=== PATIENT | female | born 1995 | race Caucasian/White ===

== ENCOUNTER 2016-10-20 19:05 | Emergency (ER) | payer OTHER ==
[~2016-10-20] VITALS: Ht 160 cm; Wt 40.4 kg
[2016-10-20 19:58] VITALS: BP 125/73
--- NOTE | 2016-10-20 22:21 | NUR ---
PT TAKE TO BED 6
--- NOTE | 2016-10-20 22:45 | NUR ---
21Y F BIB FAMILY C/O OF ABD PAIN X 2 DAYS. DENIES N/V/D. ALSO C/O OF LUMBAR PAIN X3 WKS. V/S TAKEN AND WNL. HX OF ECTOPIC AND FALLOPIAN NTUBE SX.
[2016-10-20 23:24] LABS: APPEARANCE,URINE SL CLOUDY (CLEAR); BILIRUBIN,URINE NEGATIVE (NEGATIVE); BLOOD, URINE NEGATIVE (NEGATIVE); COLOR,URINE YELLOW (YELLOW); LEUKOCYTE ESTERASE ,URINE NEGATIVE (NEGATIVE); NITRITE, URINE NEGATIVE (NEGATIVE); PH,URINE 6.5 (5.0-9.0); PROTEIN,URINE NEGATIVE (NEGATIVE); UGLUCOSE NEGATIVE (NEGATIVE); UROBILINOGEN,URINE 0.2 EU/dL (0.2 - 1)
[2016-10-20 23:33] LABS: BASOPHILS # (AUTO) 0.1 K/uL (0.00-0.22); BASOPHILS % (AUTO) 1.9 % (0.0-2.0); EOSINOPHILS # (AUTO) 0.1 K/uL (0-0.4); EOSINOPHILS % (AUTO) 1.5 % (0.0-4.0); HEMATOCRIT 37.9 % (36-48); LYMPHOCYTES # (AUTO) 1.3 K/uL (2.5-16.5); LYMPHOCYTES % (AUTO) 17.2 % (20.5-51.1); MEAN CORPUSCULAR HEMOGLOBIN 31 pg (27-31); MEAN CORPUSCULAR HGB CONC 34 g/dL (33-37); MEAN CORPUSCULAR VOLUME 90 fL (80-94); MONOCYTES # (AUTO) 0.5 K/uL (0.8-1.0); MONOCYTES % (AUTO) 6.3 % (1.7-9.3); NEUTROPHILS # (AUTO) 5.4 K/uL (1.8-7.7); NEUTROPHILS % (AUTO) 73.1 % (42.2-75.2); PLATELET COUNT (AUTO) 237 K/uL (140-450); RED CELL DISTRIBUTION WIDTH 14.1 % (11.6-13.7); WHITE BLOOD COUNT (AUTO) 7.4 K/uL (4.8-10.8)
[2016-10-20 23:37] LABS: ALBUMIN 3.7 g/dL (3.4-5.0); ANION GAP 9.8 (8-16); CALCIUM 8.3 mg/dL (8.5-10.1); CARBON DIOXIDE 30.7 mmol/L (21-32); CREATININE 0.7 mg/dL (0.6-1.3); POTASSIUM 3.5 mmol/L (3.5-5.1); TOTAL BILIRUBIN 0.6 mg/dL (0.0-1.0); TOTAL PROTEIN, SERUM 7.3 g/dL (6.4-8.2)
[2016-10-20 23:39] LABS: BACTERIA,URINE FEW /HPF (None Seen); MUCUS,URINE 4+ /LPF (None Seen); RBC,URINE 0-5 (RARE) /HPF (0-5); SQUAMOUS EPITHELIAL CELL,UR 0-3 (FEW) /LPF (0-3 (FEW)); WBC,URINE 0-5 (RARE) /HPF (0-5)
[2016-10-20 23:51] LABS: INR 1.1 (0.8-1.2); PROTHROMBIN TIME 10.6 secs (10.8-13.4)
--- NOTE | 2016-10-21 01:05 | NUR ---
Patient discharged with v/s stable. Written and verbal after care instructions given and explained BY DR DUNN. Patient verbalized understanding. Ambulatory with steady gait. All questions addressed prior to discharge. Advised to follow up with PMD.
[2016-10-21 01:07] VITALS: BP 119/71
== END 2016-10-21 01:05 | disposition home or self-care (01) ==
LOC: MED 19:05
DX: R10.30 Lower abdominal pain, unspecified (principal)
CPT/HCPCS: 36415; 76856; 80053; 81001; 81025; 85025; 85610; 85730; 86900; 86901; 99285; Q0092

== ENCOUNTER 2017-10-22 09:51 | Emergency (ER) | payer OTHER ==
[~2017-10-22] VITALS: Ht 165.1 cm; Wt 47.6 kg
[2017-10-22 10:14] VITALS: BP 126/68
--- NOTE | 2017-10-22 10:20 | NUR ---
PT AMBULATED TO BED 4
--- NOTE | 2017-10-22 10:30 | NUR ---
PATIENT PRESENTS TO ED WITH c/o persistant vomiting x 3 wks---no abdominal pain , denies watery/loose stools, UNKNOWN IF PREGNENT. DENIES PAIN, VSS. ER MD MADE AWARE OF PT STATUS.
--- NOTE | 2017-10-22 10:40 | NUR ---
Patient being evaluated by physician at bedside.
[2017-10-22] MEDS ORDERED: MULTIVITAMIN-12 10 ML, THIAMINE 100 MG, MAGNESIUM SULFATE 50% 2,000 MG, FOLIC ACID 5 MG... IV ONE ×5 (10:55)
[2017-10-22] MEDS ORDERED: FAMOTIDINE 20 MG/2 ML VIAL IVP ONE (10:55)
[2017-10-22] MEDS ORDERED: ONDANSETRON 4 MG/2 ML VIAL IVP ONE (10:55)
[2017-10-22 11:22] LABS: BILIRUBIN,URINE 1+ (NEGATIVE); BLOOD, URINE NEGATIVE (NEGATIVE); COLOR,URINE YELLOW (YELLOW); LEUKOCYTE ESTERASE ,URINE NEGATIVE (NEGATIVE); NITRITE, URINE NEGATIVE (NEGATIVE); UGLUCOSE NEGATIVE (NEGATIVE)
[2017-10-22 11:29] LABS: ANION GAP 11.6 (8-16); CARBON DIOXIDE 27.1 mmol/L (21-32); CREATININE 0.6 mg/dL (0.6-1.3); POTASSIUM 3.7 mmol/L (3.5-5.1)
[2017-10-22 11:30] LABS: BASOPHILS # (AUTO) 0.2 K/uL (0.00-0.22); EOSINOPHILS # (AUTO) 0.1 K/uL (0-0.4); EOSINOPHILS % (AUTO) 0.9 % (0.0-4.0); HEMATOCRIT 40.7 % (36-48); HEMOGLOBIN 13.6 g/dL (12.0-16.0); LYMPHOCYTES # (AUTO) 0.7 K/uL (2.5-16.5); LYMPHOCYTES % (AUTO) 11.6 % (20.5-51.1); MEAN CORPUSCULAR HEMOGLOBIN 31 pg (27-31); MEAN CORPUSCULAR HGB CONC 33 g/dL (33-37); MEAN CORPUSCULAR VOLUME 92 fL (80-94); MONOCYTES # (AUTO) 0.4 K/uL (0.8-1.0); MONOCYTES % (AUTO) 6.8 % (1.7-9.3); NEUTROPHILS # (AUTO) 4.5 K/uL (1.8-7.7); NEUTROPHILS % (AUTO) 77.7 % (42.2-75.2); PLATELET COUNT (AUTO) 241 K/uL (140-450); RED BLOOD CELL COUNT(AUTO) 4.45 MIL/uL (4.20-5.40); RED CELL DISTRIBUTION WIDTH 13.1 % (11.6-13.7); WHITE BLOOD COUNT (AUTO) 5.9 K/uL (4.8-10.8)
[2017-10-22 11:33] LABS: APPEARANCE,URINE SLIGHTLY HAZY (CLEAR)
[2017-10-22 11:34] LABS: RBC,URINE 0-5 (RARE) /HPF (0-5); WBC,URINE 0-5 (RARE) /HPF (0-5)
[2017-10-22 11:38] LABS: ALBUMIN 4.3 g/dL (3.4-5.0); TOTAL BILIRUBIN 0.9 mg/dL (0.0-1.0)
--- NOTE | 2017-10-22 11:40 | NUR ---
PT IS TAKEN VIA WHEELCHAIR FOR US.
--- NOTE | 2017-10-22 12:40 | NUR ---
PT IS RESTING IN BED, NO S/S OF DISTRESS, VSS. DENIES PAIN.
[2017-10-22 14:36] VITALS: BP 126/68
--- NOTE | 2017-10-22 14:36 | NUR ---
Patient discharged with v/s stable. Written and verbal after care instructions given and explained. Patient alert, oriented and verbalized understanding of instructions. Ambulatory with steady gait. All questions addressed prior to discharge. ID band removed. Patient advised to follow up with PMD. Rx of ZOFRAN, CITRACAL, CYPROHEPTADINE given. Patient educated on indication of medication including possible reaction and side effects. Opportunity to ask questions provided and answered.
== END 2017-10-22 14:36 | disposition home or self-care (01) ==
LOC: MED 09:51
DX: O21.0 Mild hyperemesis gravidarum (principal); Z3A.01 Less than 8 weeks gestation of pregnancy
CPT/HCPCS: 36415; 76817; 80053; 81001; 84702; 85025; 86900; 86901; 96365; 96366; 96375; 99285; A9153; J2405; J3411; J3475; J3490; J7030

== ENCOUNTER 2019-10-16 04:58 | Emergency (ER) | payer OTHER ==
[~2019-10-16] VITALS: Ht 160 cm; Wt 58.5 kg
[2019-10-16 05:02] VITALS: BP 120/67
--- NOTE | 2019-10-16 05:13 | NUR ---
PT AMBULATED TO BED 6 WITH STEADY GAIT.
--- NOTE | 2019-10-16 05:15 | NUR ---
PT 24 Y/O FEMALE BIB SELF FOR C/O 8/10 LOWER ABD PAIN X 1 WEEK. PT HAS C/O NAUSEA BUT HAS HAD NO EPISODES OF VOMITING. PT STATES BM ARE NORMAL. BS PRESENT X 4. ABD IS SOFT, ROUND, AND TENDER TO TOUCH. PT STATES PAIN IS IB LLQ, AND RLQ AND IS CONTINOUS. RESPIRATIONS ARE EVEN AND UNLABORED. SKIN IS WARM AND DRY TO TOUCH. VSS. BED IS LOCKED AND IN LOWEST POSITION. PARTNER AT BEDSIDE. MEDHX: ECTOPIC , FILLOPIAN TUBE CYST (BOTH X 5 YEARS AGO.) ALLERGIES: NKA
--- NOTE | 2019-10-16 06:03 | NUR ---
PT TAKEN TO CT VIA W/C.
[2019-10-16 06:30] LABS: BASOPHILS # (AUTO) 0.1 K/uL (0.00-0.22); BASOPHILS % (AUTO) 0.6 % (0.0-2.0); EOSINOPHILS # (AUTO) 0.1 K/uL (0-0.4); EOSINOPHILS % (AUTO) 1.2 % (0.0-4.0); HEMATOCRIT 40.4 % (36-48); HEMOGLOBIN 13.7 g/dL (12.0-16.0); LYMPHOCYTES % (AUTO) 10.4 % (20.5-51.1); MEAN CORPUSCULAR HEMOGLOBIN 31 pg (27-31); MEAN CORPUSCULAR HGB CONC 34 g/dL (33-37); MEAN CORPUSCULAR VOLUME 91.1 fL (80-94); MONOCYTES # (AUTO) 0.5 K/uL (0.8-1.0); MONOCYTES % (AUTO) 5.3 % (1.7-9.3); NEUTROPHILS # (AUTO) 7.7 K/uL (1.8-7.7); NEUTROPHILS % (AUTO) 82.5 % (42.2-75.2); PLATELET COUNT (AUTO) 220 K/uL (140-450); RED BLOOD CELL COUNT(AUTO) 4.44 MIL/uL (4.20-5.40); RED CELL DISTRIBUTION WIDTH 13.2 % (11.6-13.7); WHITE BLOOD COUNT (AUTO) 9.3 K/uL (4.8-10.8)
[2019-10-16 06:55] LABS: ANION GAP 12.2 (8-16); CARBON DIOXIDE 27.9 mmol/L (21-32); CREATININE 0.7 mg/dL (0.6-1.3); POTASSIUM 4.1 mmol/L (3.5-5.1); TOTAL BILIRUBIN 0.5 mg/dL (0.0-1.0)
--- NOTE | 2019-10-16 07:00 | NUR ---
REPORT GIVEN TO JAVI BLAIR.
--- NOTE | 2019-10-16 07:12 | NUR ---
PT RESTING IN BED, SIDE RAIL X1
[2019-10-16 07:18] LABS: APPEARANCE,URINE HAZY (CLEAR); BILIRUBIN,URINE NEGATIVE (NEGATIVE); BLOOD, URINE NEGATIVE (NEGATIVE); COLOR,URINE YELLOW (YELLOW); LEUKOCYTE ESTERASE ,URINE NEGATIVE (NEGATIVE); NITRITE, URINE NEGATIVE (NEGATIVE); UGLUCOSE NEGATIVE (NEGATIVE)
[2019-10-16] MEDS ORDERED: KETOROLAC 30 MG/ML VIAL IVP NR (07:20)
[2019-10-16] MEDS ORDERED: ONDANSETRON 4 MG ODT PO ONE (08:55)
[2019-10-16] MEDS ORDERED: HYDROcodone/APAP 5/325 MG 1 TAB TAB PO ONE (08:55)
[2019-10-16 09:07] VITALS: BP 118/62
--- NOTE | 2019-10-16 09:07 | NUR ---
Patient discharged with v/s stable. Written and verbal after care instructions given and explained. Patient alert, oriented and verbalized understanding of instructions. Ambulatory with steady gait. All questions addressed prior to discharge. ID band removed. Patient advised to follow up with PMD. Rx of NORCOZOFRAN given. Patient educated on indication of medication including possible reaction and side effects. Opportunity to ask questions provided and answered.
== END 2019-10-16 09:07 | disposition home or self-care (01) ==
LOC: MED 04:58
DX: R10.31 Right lower quadrant pain (principal); R19.7 Diarrhea, unspecified
CPT/HCPCS: 36415; 74176; 76856; 80053; 81003; 81025; 82150; 83690; 84703; 85025; 93976; 99285; Q0092; Q0162

== ENCOUNTER 2020-04-07 03:55 | Emergency (ER) | payer OTHER ==
[~2020-04-07] VITALS: Ht 160 cm; Wt 56.7 kg
[2020-04-07 03:58] VITALS: BP 157/85
--- NOTE | 2020-04-07 04:09 | NUR ---
ambulated to bed 9 with steady gait
[2020-04-07] MEDS ORDERED: KETOROLAC 15 MG/ML VIAL IVP STA (04:18)
[2020-04-07 04:19] LABS: APPEARANCE,URINE SL CLOUDY (CLEAR); BILIRUBIN,URINE NEGATIVE (NEGATIVE); BLOOD, URINE TRACE-I (NEGATIVE); COLOR,URINE YELLOW (YELLOW); LEUKOCYTE ESTERASE ,URINE NEGATIVE (NEGATIVE); NITRITE, URINE NEGATIVE (NEGATIVE); PH,URINE 5.5 (5.0-9.0); UGLUCOSE NEGATIVE (NEGATIVE)
--- NOTE | 2020-04-07 04:20 | NUR ---
24 year old female coming in for c/o rlq abdominal pain x 3 hours that is non radiating. states dysuria. denies hematuria or discharges. denies any other s/sx. no injury or trauma noted. Awaiting MSE. PMH: FALLOPIAN CYST , ECTOPIC PREG NKA LMP 03/24/20
--- NOTE | 2020-04-07 04:30 | NUR ---
Dr. Earl at bedside evaluating pt.
[2020-04-07 04:35] LABS: RBC,URINE 0-5 /HPF (0-5); WBC,URINE 0-5 /HPF (0-5)
[2020-04-07 04:43] LABS: BASOPHILS % (AUTO) 0.2 % (0.0-2.0); EOSINOPHILS # (AUTO) 0.2 K/uL (0-0.4); EOSINOPHILS % (AUTO) 1.4 % (0.0-4.0); HEMATOCRIT 40.5 % (36-48); HEMOGLOBIN 13.7 g/dL (12.0-16.0); LYMPHOCYTES # (AUTO) 1.4 K/uL (2.5-16.5); LYMPHOCYTES % (AUTO) 10.3 % (20.5-51.1); MEAN CORPUSCULAR HEMOGLOBIN 31 pg (27-31); MEAN CORPUSCULAR HGB CONC 34 g/dL (33-37); MEAN CORPUSCULAR VOLUME 92.8 fL (80-94); MONOCYTES # (AUTO) 0.5 K/uL (0.8-1.0); MONOCYTES % (AUTO) 4.1 % (1.7-9.3); NEUTROPHILS # (AUTO) 11.2 K/uL (1.8-7.7); PLATELET COUNT (AUTO) 235 K/uL (140-450); RED BLOOD CELL COUNT(AUTO) 4.36 MIL/uL (4.20-5.40); WHITE BLOOD COUNT (AUTO) 13.4 K/uL (4.8-10.8)
[2020-04-07 04:55] LABS: ALBUMIN 4.4 g/dL (3.4-5.0); ANION GAP 17.1 (8-16); CARBON DIOXIDE 24.3 mmol/L (21-32); CREATININE 0.8 mg/dL (0.6-1.3); POTASSIUM 3.4 mmol/L (3.5-5.1); TOTAL BILIRUBIN 0.6 mg/dL (0.0-1.0)
[2020-04-07 06:27] VITALS: BP 140/77
--- NOTE | 2020-04-07 06:50 | NUR ---
Patient discharged with v/s stable. Written and verbal after care instructions given and explained. Patient verbalized understanding. Ambulatory with steady gait. All questions addressed prior to discharge. Advised to follow up with PMD.
== END 2020-04-07 06:50 | disposition home or self-care (01) ==
LOC: MED 03:55
DX: N83.201 Unspecified ovarian cyst, right side (principal)
CPT/HCPCS: 36415; 76856; 80053; 81001; 81025; 85025; 93976; 96374; 99284; J1885; Q0092

== ENCOUNTER 2021-01-30 09:18 | Emergency (ER) | payer OTHER ==
[~2021-01-30] VITALS: Ht 160 cm; Wt 61.2 kg
--- NOTE | 2021-01-30 09:21 | NUR ---
Patient transferred to bed 9 via wheelchair by tech. RN evaluating the patient at bedside.
[2021-01-30 09:25] VITALS: BP 124/46
--- NOTE | 2021-01-30 09:26 | NUR ---
25 YEAR OLD FEMALE COMPLAINS OF LOWER BACK PAIN X YESTERDAY. PT DENIES ANY TRAUMA. PT STATES THIS IS SECOND TIME THIS IS HAPPENED, LIMITED MOBILITY DUE TO PAIN. PT STATES SENSATION IN LEGS INTACT. PT AOX4, BREATHING EVEN AND UNLABORED, SKIN WARM AND DRY. BED IN LOWEST POSITION, LOCKED, BED RAIL UPX1. PMH - ECTOPIC , FALLOPIAN CYST, HEART MURMOR ALLERGIES - NKA
[2021-01-30] MEDS ORDERED: KETOROLAC 15 MG/ML VIAL IM SCH (10:05)
[2021-01-30] MEDS ORDERED: DEXAMETHASONE 4 MG TAB PO ONE (10:10)
[2021-01-30] MEDS ORDERED: KETOROLAC 15 MG/ML VIAL IM ONE (10:10)
[2021-01-30] MEDS ORDERED: diazePAM 5 MG TAB PO ONE (10:55)
--- NOTE | 2021-01-30 11:30 | NUR ---
PT ALERT AND AWAKE, BREATHING EVEN AND UNLABORED. NO DISTRESS NOTED. ALL NEEDS MET AT THIS TIME
[2021-01-30] MEDS ORDERED: HYDROcodone/APAP 5/325 MG 1 TAB TAB PO ONE (11:55)
--- NOTE | 2021-01-30 12:55 | NUR ---
Dr. Dubois is evaluating the patient at bedside.
[2021-01-30] MEDS ORDERED: methocarbamoL 500 MG TAB PO STA (12:59)
--- NOTE | 2021-01-30 13:00 | NUR ---
PT ALERT AND AWAKE, BREATHING EVEN AND UNLABORED. NO DISTRESS NOTED. ALL NEEDS MET AT THIS TIME
--- NOTE | 2021-01-30 13:08 | NUR ---
PT ASSISTED INTO A STANDING POSITION AND STATES IMPROVEMENT OF PAIN AT THIS TIME. DR. GEORGE NOTIFIED.
[2021-01-30] MEDS ORDERED: ACET-8386 PO (13:33)
[2021-01-30] MEDS ORDERED: IBUP-2213 PO (13:33)
[2021-01-30] MEDS ORDERED: METH-1681 PO (13:33)
[2021-01-30] MEDS ORDERED: LID5T TP (13:33)
--- NOTE | 2021-01-30 13:45 | NUR ---
Patient discharged with v/s stable. Written and verbal after care instructions about back exercises, back injury prevention given and explained. Patient alert, oriented and verbalized understanding of instructions. Ambulatory with steady gait. All questions addressed prior to discharge. ID band removed. Patient advised to follow up with PMD. Rx of NORCO, ibuprofen, lidoderm patch, robaxin given. Patient educated on indication of medication including possible reaction and side effects. Opportunity to ask questions provided and answered.
[2021-01-30 13:46] VITALS: BP 120/62
== END 2021-01-30 13:45 | disposition home or self-care (01) ==
LOC: MED 09:18
DX: S39.012A Strain of muscle, fascia and tendon of lower back, initial encounter (principal); X58.XXXA Exposure to other specified factors, initial encounter; Y93.89 Activity, other specified; Y92.89 Other specified places as the place of occurrence of the external cause; Y99.8 Other external cause status
CPT/HCPCS: 72100; 96372; 99284; J1885

== ENCOUNTER 2022-08-08 04:00 | Emergency (ER) | payer OTHER ==
[~2022-08-08] VITALS: Ht 160 cm; Wt 54.4 kg
[~2022-08-08 04:00] MED LIST: ACET-8905 PO; IBUP-2213 PO; LID5T TP; METH-1681 PO
[2022-08-08 04:02] VITALS: BP 110/86
--- NOTE | 2022-08-08 04:09 | NUR ---
PT TO 3
--- NOTE | 2022-08-08 04:17 | NUR ---
PT IS AWKE AND ALERT. COMPLANING OF ANXIETY AND PALPITATION. PT IS AMBULATORY AND ROOM AIR.
[2022-08-08] MEDS ORDERED: LORazepam 0.5 MG TAB PO ONE (05:15)
--- NOTE | 2022-08-08 05:27 | NUR ---
X-Ray at bedside.
[2022-08-08] MEDS ORDERED: ATA25 PO (06:19)
[2022-08-08 07:13] VITALS: BP 110/86
--- NOTE | 2022-08-08 07:15 | NUR ---
Patient discharged with v/s stable. Written and verbal after care instructions given and explained. Patient verbalized understanding. Ambulatory with steady gait. All questions addressed prior to discharge. Advised to follow up with PMD. PT LEFT WITH HER BELONGINGS
[2022-08-08 07:30] LABS: BARBITURATE, URINE NEGATIVE ng/ml (NEG <=200); BENZODIAZEPINE, URINE NEGATIVE ng/mL (NEG <=200); COCAINE, URINE POSITIVE ng/mL (NEG <=300)
[2022-08-08 07:31] LABS: CANNABINOID, URINE POSITIVE ng/mL (NEG <=50); OPIATE, URINE NEGATIVE ng/mL (NEG <=2000); PHENCYCLIDINE SCREEN,URINE NEGATIVE ng/mL (NEG <=25)
== END 2022-08-08 06:45 | disposition home or self-care (01) ==
LOC: MED 04:00
DX: F41.9 Anxiety disorder, unspecified (principal); T40.5X5A Adverse effect of cocaine, initial encounter; Y92.89 Other specified places as the place of occurrence of the external cause
CPT/HCPCS: 71045; 80305; 99285; Q0092